=== PATIENT | female | born 1960 | race African-American/Black ===

== ENCOUNTER 2018-04-17 13:16 | Inpatient (IN) | payer MEDICAID ==
[~2018-04-17] VITALS: Ht 165.1 cm; Wt 76.2 kg
[2018-04-17 15:35] LABS: BASOPHILS % 0.7 % (0.0-2.0); EOSINOPHILS % 0.3 % (0.0-5.0); HEMATOCRIT. 44.6 % (36.0-48.0); HEMOGLOBIN. 15.1 g/dL (12.0-16.0); LYMPHOCYTES % 42.2 % (20.0-50.0); MEAN CORPUSCULAR HEMOGLOBIN 32.3 pg (28.0-32.0); MEAN CORPUSCULAR VOLUME 95.6 fL (81.0-99.0); MEAN PLATELET VOLUME 10.3 fl (7.4-10.4); MONOCYTES % 5.1 % (2.0-8.0); NEUTROPHILS % 51.7 % (40.0-76.0); PLATELET 199 x1000/uL (130-400); RED BLOOD CELL COUNT 4.67 mill/uL (4.2-5.4); RED CELL DISTRIBUTION WIDTH 12.8 % (11.6-14.6)
[2018-04-17 15:41] LABS: CHLORIDE 105 mEq/L (98-107); PARTIAL THROMBOPLASTIN TIME 25.9 sec (23.4-31.0); PROTHROMBIN TIME 10.3 sec (9.1-11.1)
[2018-04-17 16:38] LABS: CLARITY URINE CLEAR (CLEAR); COLOR URINE YELLOW (YELLOW); KETONES URINE NEGATIVE (NEGATIVE); LEUKOCYTE ESTERASE URINE NEGATIVE (NEGATIVE); NITRITE URINE NEGATIVE (NEGATIVE); OCCULT BLOOD URINE NEGATIVE (NEGATIVE); PH URINE 5.5 (4.5-8.0); PROTEIN URINE NEGATIVE (NEGATIVE); SPECIFIC GRAVITY URINE 1.011 (1.005-1.030); UROBILINOGEN URINE 0.2 E.U./dL (0.2-1.0)
[2018-04-17] MEDS ORDERED: ONDANSETRON HCL 4MG/2ML INJ IV STA ×2 (16:50→19:10)
[2018-04-17] MEDS ORDERED: SODIUM CHLORIDE 0.9% 1,000 ML IV ONE (16:50)
[2018-04-17] MEDS ORDERED: KETOROLAC 30MG/ML VIAL IV STA (16:50)
[2018-04-17 17:26] LABS: *AMPHETAMINES SCREEN URINE NEGATIVE (NEGATIVE); *BARBITURATES SCREEN URINE NEGATIVE (NEGATIVE); *BENZODIAZEPINES SCREEN URINE PRESUMTIVE POSITIVE (NEGATIVE); *COCAINE SCREEN URINE NEGATIVE (NEGATIVE); CANNABINOID URINE SCREEN NEGATIVE (NEGATIVE); METHADONE URINE SCREEN NEGATIVE (NEGATIVE); OPIATES URINE SCREEN NEGATIVE (NEGATIVE); PHENCYCLIDINE URINE SCREEN NEGATIVE (NEGATIVE)
[2018-04-17] MEDS ORDERED: MORPHINE SULFATE 4 MG/ML CPJ (NOT FOR IM USE) IV STA (19:10)
[2018-04-17] MEDS ORDERED: ASPIRIN 81MG TABLET PO ONE (19:15)
[2018-04-17 21:49] VITALS: BP 136/90
[2018-04-17 21:53] VITALS: BP 136/90
[2018-04-17] MEDS ORDERED: NIFE30TA83 PO (22:08)
[2018-04-17] MEDS ORDERED: GABA-290 PO (22:08)
[2018-04-17] MEDS ORDERED: VIT1TABL86 PO (22:08)
[2018-04-17] MEDS ORDERED: ZINC50TA69 PO (22:08)
[2018-04-17] MEDS ORDERED: VIT1TABL5 PO (22:08)
[2018-04-17] MEDS ORDERED: ONDA4TAB8 PO (22:08)
[2018-04-17] MEDS ORDERED: MORPHINE SULFATE 4 MG/ML CPJ (NOT FOR IM USE) IV PRN (22:45)
[2018-04-17] MEDS ORDERED: ZOLPIDEM TARTRATE 5MG TABLET PO PRN (22:45)
[2018-04-18 00:05] VITALS: BP 121/61
[2018-04-18] MEDS ORDERED: LORAZEPAM 2MG/ML CPJ IV PRN (00:15)
[2018-04-18] MEDS: ONDANSETRON HCL 4MG/2ML INJ IV PRN ×2 (00:54→08:00)
[2018-04-18 04:00] VITALS: BP 119/68
[2018-04-18] MEDS: NITROGLYCERIN OINT 1GM/INCH UDPKT TD SCH ×2 (05:50→13:24)
[2018-04-18 06:59] LABS: BASOPHILS % 0.6 % (0.0-2.0); EOSINOPHILS % 0.7 % (0.0-5.0); HEMATOCRIT. 42.2 % (36.0-48.0); HEMOGLOBIN. 14.1 g/dL (12.0-16.0); LYMPHOCYTES % 47.6 % (20.0-50.0); MEAN CORPUSCULAR HEMOGLOBIN 31.7 pg (28.0-32.0); MEAN PLATELET VOLUME 10.1 fl (7.4-10.4); MONOCYTES % 6.1 % (2.0-8.0); PLATELET 185 x1000/uL (130-400); RED BLOOD CELL COUNT 4.44 mill/uL (4.2-5.4); RED CELL DISTRIBUTION WIDTH 12.4 % (11.6-14.6)
[2018-04-18 07:35] LABS: CHLORIDE 106 mEq/L (98-107)
[2018-04-18 07:48] LABS: HDL CHOLESTEROL 65 mg/dL (40-59); LDL CHOLESTEROL 146 mg/dL (5-100)
[2018-04-18 08:00] VITALS: BP 113/67
[2018-04-18] MEDS ORDERED: METOPROLOL TARTRATE 50MG TABLET PO SCH (09:00)
[2018-04-18] MEDS ORDERED: ASPIRIN 325MG TABLET PO SCH (09:00)
[2018-04-18 12:00] VITALS: BP 120/70
[2018-04-18] MEDS ORDERED: LORAZEPAM 1MG TABLET PO PRN (14:30)
[2018-04-18] MEDS ORDERED: POTASSIUM CHLORIDE 10MEQ TABLET SR PO NR (15:45)
[2018-04-18 15:46] VITALS: BP 120/70
[2018-04-18] MEDS ORDERED: GABAPENTIN 300MG CAPSULE PO SCH (21:00)
[2018-04-19] MEDS ORDERED: OMEPRAZOLE 20MG CAPSULE EXTENDED RELEASE PO SCH (07:40)
== END 2018-04-18 16:45 | disposition home or self-care (01) | DRG 203 ==
LOC: ER 13:16 → EDBEDREQ 15:18 → 7WST 19:28 → EDBEDREQTM 19:29 → EDBEDREQ 19:29 → ENRESERV 19:54
PROVIDERS: ADMIT Internal Medicine; ATTEND Internal Medicine
DX: R07.89 Other chest pain (principal); E87.8 Other disorders of electrolyte and fluid balance, not elsewhere classified; R10.9 Unspecified abdominal pain; E66.9 Obesity, unspecified; E78.5 Hyperlipidemia, unspecified; G62.9 Polyneuropathy, unspecified; F41.9 Anxiety disorder, unspecified; F17.210 Nicotine dependence, cigarettes, uncomplicated; M19.90 Unspecified osteoarthritis, unspecified site; F32.9 Major depressive disorder, single episode, unspecified; I10 Essential (primary) hypertension; K21.9 Gastro-esophageal reflux disease without esophagitis; J42 Unspecified chronic bronchitis; Z98.891 History of uterine scar from previous surgery; Z79.899 Other long term (current) drug therapy; Z68.28 Body mass index [BMI] 28.0-28.9, adult
CPT/HCPCS: 36415; 71045; 80048; 80061; 80305; 83880; 84484; 93005; 96361; 96374; 96375; 96376; 99285; J1885; J2060; J2270; J2405; J7030